=== PATIENT | female | born 1965 | race Caucasian/White ===

== ENCOUNTER → 2017-12-10 16:12 | Outpatient (CLI) | payer OTHER, SELFPAY | PROVIDERS: Visit Provider Nurse Practitioner Women's Health | DX: N76.0 Acute vaginitis (principal); N94.9 Unspecified condition associated with female genital organs and menstrual cycle | CPT/HCPCS: 87070; 87077; 87086; 87088; 87205 ==

== ENCOUNTER → 2018-04-01 15:44 | Outpatient (CLI) | payer OTHER, SELFPAY | PROVIDERS: Visit Provider Nurse Practitioner Women's Health | DX: Z12.31 Encounter for screening mammogram for malignant neoplasm of breast (principal) | CPT/HCPCS: 77063; 77067 ==

== ENCOUNTER → 2018-06-22 18:48 | Outpatient (CLI) | payer OTHER, SELFPAY ==
[2018-06-22 15:33] VITALS: BMI 24.7
== END ==
PROVIDERS: Referring Provider Obstetrics & Gynecology; Visit Provider Obstetrics & Gynecology
DX: N76.0 Acute vaginitis (principal)
CPT/HCPCS: 87086

== ENCOUNTER → 2019-08-31 16:10 | Outpatient (CLI) | payer OTHER, SELFPAY ==
[2019-08-31 15:26] VITALS: BMI 24.7
== END ==
PROVIDERS: Referring Provider Nurse Practitioner Women's Health; Visit Provider Nurse Practitioner Women's Health
DX: N89.8 Other specified noninflammatory disorders of vagina (principal)
CPT/HCPCS: 87070; 87205

== ENCOUNTER 2021-09-20 08:51 | Outpatient (CLI) | payer OTHER, SELFPAY | END 2021-09-20 23:59 | disposition home or self-care (01) | LOC: LABSPEC 09-21 08:53 | PROVIDERS: Visit Provider Obstetrics & Gynecology | DX: N94.9 Unspecified condition associated with female genital organs and menstrual cycle (principal) | CPT/HCPCS: 87070; 87205 ==

== ENCOUNTER 2021-10-15 13:49 | Outpatient (CLI) | payer OTHER, SELFPAY ==
--- NOTE | 2021-10-15 13:52 | US_ITS ---
INDICATION: pelvic pain EXAMINATION: Ultrasound US Pelvis Non OB Limited With Transvaginal Imaging TECHNIQUE: Transabdominal pelvic ultrasound was performed. Grayscale, spectral waveform, and color flow Doppler evaluation of the adnexa. COMPARISON: None. FINDINGS: UTERUS: Anteverted. The uterus measures 5.4 x 3.1 x 1.7 cm. There is no uterine mass. The endometrial stripe measures 1.1 mm in AP diameter which is within normal limits. There are some nonspecific calcifications within the endometrium within the lower uterine segment. RIGHT OVARY: Status post right oophorectomy. No adnexal mass. LEFT OVARY: Nonvisualized. No adnexal mass. FREE FLUID: None. US/Transvaginal Non- IMPRESSION: 1. No acute findings as above. 2. Few nonspecific calcifications within the endometrium within the lower uterine segment. Otherwise, there is no endometrial mass or abnormal endometrial thickening. Electronically Signed: Jose Maria Mackay, at 16:34 EDT ,
--- NOTE | 2021-10-15 13:52 | US_ITS ---
INDICATION: pelvic pain EXAMINATION: Ultrasound US Pelvis Non OB Limited With Transvaginal Imaging TECHNIQUE: Transabdominal pelvic ultrasound was performed. Grayscale, spectral waveform, and color flow Doppler evaluation of the adnexa. COMPARISON: None. FINDINGS: UTERUS: Anteverted. The uterus measures 5.4 x 3.1 x 1.7 cm. There is no uterine mass. The endometrial stripe measures 1.1 mm in AP diameter which is within normal limits. There are some nonspecific calcifications within the endometrium within the lower uterine segment. RIGHT OVARY: Status post right oophorectomy. No adnexal mass. LEFT OVARY: Nonvisualized. No adnexal mass. FREE FLUID: None. US/Pelvic (Non ) IMPRESSION: 1. No acute findings as above. 2. Few nonspecific calcifications within the endometrium within the lower uterine segment. Otherwise, there is no endometrial mass or abnormal endometrial thickening. Electronically Signed: Jose Maria Mackay, at 16:34 EDT ,
== END 2021-10-15 23:59 | disposition home or self-care (01) ==
LOC: OPUS 13:49
PROVIDERS: Visit Provider Obstetrics & Gynecology
DX: R10.2 Pelvic and perineal pain (principal); G89.29 Other chronic pain
CPT/HCPCS: 76830; 76856

== ENCOUNTER → 2024-11-25 | Outpatient (CLI) | payer BC, SELFPAY ==
--- NOTE | 2024-11-25 07:51 | CT_ITS ---
PROCEDURE: SINUS/FACIAL BONE REASON FOR EXAM: SINUSITIS 1 year history of right sinus pressure. Evidence of prior deviated septum repair and balloon septoplasty. TECHNIQUE: CT of the paranasal sinuses without contrast. Coronal and Sagittal reconstruction series were provided. One or more dose reduction techniques were used (e.g., Automated exposure control, adjustment of the mA and/or kV according to patient size, use of iterative reconstruction technique). COMPARISON: None. FINDINGS: Frontal: Unremarkable Ethmoid: Unremarkable Sphenoid: Unremarkable Maxillary: Unremarkable Turbinates: Unremarkable Nasal Septum: Unremarkable Mastoids/Middle Ears: Unremarkable Incidental note is made of small benign-appearing cervical lymph nodes. CT/Sinus/Facial Bone IMPRESSION: No acute abnormality is seen. Reading Location: [place] [id number]
== END | disposition home or self-care (01) ==
LOC: CT 07:48
PROVIDERS: PCP Family Medicine; Referring Provider Otolaryngology; Visit Provider Otolaryngology
DX: J32.9 Chronic sinusitis, unspecified (principal)
CPT/HCPCS: 70486